=== PATIENT | male | born 1960 ===

== ENCOUNTER 2017-09-11 02:17 | Day surgery (SDC) | payer OTHER ==
[2017-09-11] VITALS (7 sets, daily range): BP systolic 122–157; BP diastolic 73–102
[~2017-09-11] VITALS: Ht 175.3 cm; Wt 84.8 kg
[~2017-09-11 02:17] MED LIST: HYDR-2966 PO; IRBE300T6 PO
[2017-09-11] MEDS ORDERED: METOCLOPRAMIDE 10 MG/2 ML SDV ONE (07:42)
[2017-09-11] MEDS ORDERED: LIDOCAINE MPF 1% 5 ML VIAL ONE (07:42)
[2017-09-11] MEDS ORDERED: DEXAMETHASONE SOD 4 MG/ML VIAL ONE (07:42)
[2017-09-11] MEDS ORDERED: PROPOFOL EMUL(*) 10MG/ML 20 ML 20 ML ONE (07:42)
[2017-09-11] MEDS ORDERED: ONDANSETRON 4 MG/2 ML VIAL ONE (07:42)
[2017-09-11] MEDS ORDERED: fentaNYL CITR 100 MCG/2 ML AMP ONE ×3 (07:44→12:00)
[2017-09-11] MEDS: NORMOSOL R SOLN(*) 1000 ML BAG 1,000 ML IV PRN ×2 (07:46→12:04)
[2017-09-11] MEDS ORDERED: ROPIVACAINE 0.2% 20 ML VIAL ONE (09:25)
[2017-09-11] MEDS ORDERED: BACITRACIN/POLYMY B OINT 15 GM TP ONE (09:25)
[2017-09-11] MEDS ORDERED: BACITRACIN OINT 15 GM TUBE TP ONE (09:25)
[2017-09-11] MEDS ORDERED: LIDOCAINE 4% SOLN 50 ML BTL TP ONE (09:36)
[2017-09-11] MEDS ORDERED: HEPARIN SOD LCK FLSH 100 UN/ML ONE (09:36)
[2017-09-11] MEDS ORDERED: CLINDAMYCIN(*) 600 MG/NS 50 ML 50 ML IVPB ONE (10:00)
[2017-09-11] MEDS ORDERED: MIDAZOLAM 2 MG/2 ML VIAL IVP ONE (10:00)
[2017-09-11] MEDS ORDERED: FAMOTIDINE 20 MG TAB PO ONE (10:00)
[2017-09-11] MEDS ORDERED: CELECOXIB 200 MG CAP PO ONE (10:00)
[2017-09-11] MEDS ORDERED: LIDOCAINE/SOD BICARB 8.4% SYR ID ONE (10:00)
[2017-09-11] MEDS ORDERED: HYDR-385 PO (12:17)
[2017-09-11] MEDS ORDERED: CLIN300C99 PO (12:17)
[2017-09-11] MEDS ORDERED: APAP/HYDROCODONE 325/5 TAB PO ONE (14:10)
--- NOTE | 2017-09-11 19:54 | OPERATIVE REPORT 1 ---
EVENT DATE: September 11, 2017 SURGEON: Yovanny Lozano MD ANESTHESIOLOGIST: Vinod Corona MD ANESTHESIA: General. SPIRAL WEAVER: PADILLA Chan PREOPERATIVE DIAGNOSIS Atypical right wrist collapse with apparent scapholunate ligament disruption and a volar intercalated segmental instability deformity. 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 PROCEDURES PERFORMED 1. Exploration of right wrist with denervation of wrist times two. 2. Palmaris longus harvest with lunotriquetral ligament reconstruction and dorsal capsulodesis of wrist. ESTIMATED BLOOD LOSS Minimal. INTRAVENOUS FLUIDS 1900 TOURNIQUET TIME 98 minutes at 250 mmHg. SPECIMENS No specimens. COMPLICATIONS No complications. IMPLANTS One Mini Mitek anchor. SUMMARY OF PROCEDURE The patient was brought into the operating room and placed on the OR table in the supine position. After attaining adequate general anesthesia, the right upper extremity was prepped and draped in the usual sterile fashion. The limb was exsanguinated, and the tourniquet was inflated to 250 mmHg. A dorsal incision was taken through the skin and subcutaneous tissue in a longitudinal direction. The EPL was identified. The extensor retinaculum was divided longitudinally, and the EPL was placed on a [place] drain. We then mobilized the extensor carpi radialis longus and brevis and placed them on a separate Dia drain. We then opened up the contents of the fourth dorsal compartment and placed all the extensor tendons on another Dia drain. At this point, I then made a full exposure of the interosseous membrane just proximal to the distal radioulnar joint, identified the terminal branch of the posterior interosseous nerve, and segmentally resected a portion of it with electrocautery. I made a small window in the interosseous membrane and identified the posterior branch of the anterior interosseous nerve and resected a segment of that as well. We then opened the capsule using an anatomic incision such that we placed this on the apex of the triquetrum and then slowly brought the tissue back. Care was taken to use scissors in a tangential fashion so as not to damage any underlying structure. When we had flipped this capsular segment back and examined the wrist, it became evident that even though the scapholunate ligament appeared disrupted on x-ray, the tissue was completely intact at that location. His lunate was tipped completely down into flexion such that the proximal articular surface was facing dorsal, and the dorsal pole was impacting the capitate. I could manually reduce this, but it tended to want to pop back up on its own. What was evident was the source of the VISI deformity being a chronic lunotriquetral disruption. I carefully inspected the articular surfaces and found no significant arthritic change at this time. Therefore, the plan was switched now because we were planning on doing a Brunelli reconstruction of the scapholunate interval, but that is clearly not the case, and that does explain why he had a VISI deformity instead of a DISI deformity, and yet on x-ray, it did not really look like his lunotriquetral interval was wide. In any case, we reduced the lunate with joystick K-wires and then placed a drill hole from the dorsal aspect to the lunate out through the surface on its junction with the triquetrum. A similar drill hole was placed using a 2.0 drill through the triquetrum. We then turned his hand over and made a longitudinal incision along the border of the flexor carpi radialis because I thought that we might have to use a portion of the FCR since it was not immediately evident that he had a palmaris longus, but upon dissection, I could find a good palmaris longus tendon to use, and we harvested this. We took off the excess muscle from it and then whip stitched the end. It was drawn from the lunate out into the space between the lunate and triquetrum and then up into the triquetrum. It was folded over itself, tied in a single overhand knot, and cinched down quite tightly. It was held in that position while I placed several FiberWire sutures to hold the elements together , and then I additionally passed this through the capsule to tighten it up further. A Mitek anchor was now placed into the dorsal surface of the lunate in the same hole that had been used for the K-wire. We then placed the sutures up through the proximal aspect of the capsule and back down onto itself so that the sutures were tied over the lunate and kept the knot out of the path of the fourth dorsal compartment tendons. We then ranged the wrist to confirm on x- ray and on clinical exam that it did not tend to flip back into a VISI deformity. It seemed quite stable. I considered placement of K-wires, but with the drill holes as well as the Mitek anchor sutures, I felt that it was fairly likely that the K-wires would destabilize the repair and possibly damage the graft, so I elected not to do that since it seemed to be holding quite nicely without any wire immobilization. The wound was irrigated. We used 4-0 FiberWire suture to repair the capsule and then left the EPL radialized and used 4-0 FiberWire suture to repair the extensor retinaculum. The tourniquet was deflated. Bipolar cautery was used where necessary for hemostasis, followed by closure with nylon and then placement of a thumb spica splint. He was awakened and transferred to the recovery area in stable condition. CHANDANA
== END 2017-09-11 12:53 | disposition home or self-care (01) ==
LOC: OR 02:17
PROVIDERS: ATTEND Orthopaedic Surgery Hand Surgery
DX: S63.501A Unspecified sprain of right wrist, initial encounter (principal); M19.039 Primary osteoarthritis, unspecified wrist
CPT/HCPCS: 20924; 25332; 76000; A4565; C1713; J1100; J2001; J2250; J2405; J2704; J2765; J2795; J3010; J3490; J1642